=== PATIENT | female | born 1985 | race Caucasian/White ===

== ENCOUNTER → 2018-03-16 | Outpatient (REF) | payer OTHER ==
[2018-03-18 14:10] LABS: HPV HYBRID CAPTURE II Negative (Negative)
== END ==
LOC: M LAB REF 14:32
DX: Z01.419 Encounter for gynecological examination (general) (routine) without abnormal findings (principal); Z11.51 Encounter for screening for human papillomavirus (HPV)

== ENCOUNTER → 2018-04-25 | Outpatient (CLI) | payer OTHER ==
[2018-04-25 17:42] LABS: BASO % 0.2 % (0.0-1.0); EOS % 0.5 % (0.0-3.0); HEMATOCRIT 38.4 % (36.0-47.0); HEMOGLOBIN 12.6 g/dl (12.0-15.5); IMMATURE GRANULOCYTE % 0.4 % (0-3.0); LYMPH # 1.7 10^3/uL (1.5-4.5); LYMPH % 20.7 % (24.0-44.0); MEAN CORPUSCULAR HEMOGLOBIN 31.9 pg (27.0-33.0); MEAN CORPUSCULAR HGB CONC 32.8 g/dl (32.0-36.5); MEAN CORPUSCULAR VOLUME 97.2 fl (80.0-96.0); MONO # 0.5 10^3/uL (0.0-0.8); NEUTROPHILS % 72.2 % (36.0-66.0); PLATELET COUNT, AUTOMATED 158 10^3/uL (150-450); RED BLOOD COUNT 3.95 10^6/uL (4.00-5.40); RED CELL DISTRIBUTION WIDTH 13.5 % (11.5-14.5); WHITE BLOOD COUNT 8.3 10^3/uL (4.0-10.0)
[2018-04-25 19:11] LABS: CHLAMYDIA DNA AMPLIFICATION NEGATIVE (NEGATIVE); GC DNA AMPLIFICATION NEGATIVE (NEGATIVE)
[2018-04-26 11:28] LABS: RUBELLA IgG QUALITATIVE IMMUNE (IMMUNE)
[2018-04-26 11:41] LABS: HBsAg Prenatal NEGATIVE (NEGATIVE)
[2018-04-26 11:57] LABS: HIV 1&2 SCREEN CENTAUR NEGATIVE (NEGATIVE)
[2018-04-26 11:57] LABS: HEPATITIS C VIRUS ABY INDEX 0.1 INDEX (<0.8)
== END ==
LOC: M SMT 15:23
DX: Z36.89 Encounter for other specified antenatal screening (principal); Z3A.08 8 weeks gestation of pregnancy
CPT/HCPCS: 86762

== ENCOUNTER → 2018-07-03 | Outpatient (CLI) | payer OTHER | LOC: M SMT 07:49 | DX: Z36.9 Encounter for antenatal screening, unspecified (principal); Z3A.17 17 weeks gestation of pregnancy | CPT/HCPCS: 76811 ==

== ENCOUNTER → 2018-07-31 | Outpatient (CLI) | payer OTHER | LOC: M SMT 14:53 | DX: Z36.82 Encounter for antenatal screening for nuchal translucency (principal) ==

== ENCOUNTER → 2018-09-06 | Outpatient (CLI) | payer OTHER ==
[2018-09-06 13:21] LABS: GLUCOSE CHALLENGE TEST 1 HOUR 123 MG/DL (LESS THAN 140)
[2018-09-06 13:27] LABS: HEMATOCRIT 34.6 % (36.0-47.0); HEMOGLOBIN 11.5 g/dl (12.0-15.5); MEAN CORPUSCULAR HEMOGLOBIN 33.4 pg (27.0-33.0); MEAN CORPUSCULAR HGB CONC 33.2 g/dl (32.0-36.5); MEAN CORPUSCULAR VOLUME 100.6 fl (80.0-96.0); PLATELET COUNT, AUTOMATED 129 10^3/uL (150-450); RED BLOOD COUNT 3.44 10^6/uL (4.00-5.40); RED CELL DISTRIBUTION WIDTH 13.3 % (11.5-14.5); WHITE BLOOD COUNT 8.6 10^3/uL (4.0-10.0)
== END ==
LOC: M SMT 09:34
DX: Z34.82 Encounter for supervision of other normal pregnancy, second trimester (principal); Z36.89 Encounter for other specified antenatal screening
CPT/HCPCS: 82950

== ENCOUNTER → 2018-11-03 | Outpatient (REF) | payer OTHER ==
[~2018-11-03] MED LIST: ACET50TA PO; CYCL5TA PO; IBUP80TA PO; MAPA500T2 PO; PRENTAB74 PO
== END ==
LOC: M LAB REF 17:06
PROVIDERS: ATTEND Advanced Practice Midwife
DX: Z34.83 Encounter for supervision of other normal pregnancy, third trimester (principal); Z36.85 Encounter for antenatal screening for Streptococcus B

== ENCOUNTER 2018-11-28 19:58 | Inpatient (IN) | payer OTHER ==
[~2018-11-28] VITALS: Ht 160 cm; Wt 95.2 kg
[2018-11-28 20:15] VITALS: BP 113/65
[2018-11-28] MEDS ORDERED: RANI15TA PO (20:20)
[2018-11-28] MEDS ORDERED: OCUF0.25 OS (20:20)
[2018-11-28] MEDS ORDERED: PENICILLIN G POTASSIUM IV 5 MU in D5W MINI-BAG PLUS 100 ML IV STA (20:43)
[2018-11-28 21:09] LABS: HEMOGLOBIN 12.5 g/dl (12.0-15.5); MEAN CORPUSCULAR HEMOGLOBIN 33.6 pg (27.0-33.0); MEAN CORPUSCULAR HGB CONC 33.8 g/dl (32.0-36.5); MEAN CORPUSCULAR VOLUME 99.5 fl (80.0-96.0); RED BLOOD COUNT 3.72 10^6/uL (4.00-5.40); WHITE BLOOD COUNT 9.2 10^3/uL (4.0-10.0)
[2018-11-28 21:24] LABS: PLATELET COUNT, AUTOMATED 93 10^3/uL (150-450)
[2018-11-28 23:15] VITALS: BP 110/54
[2018-11-29] VITALS (12 sets, daily range): BP systolic 99–121; BP diastolic 50–73
[2018-11-29] MEDS ORDERED: OXYTOCIN 30 UNITS IN 0.9% NaCl 500ML IV BAG (J2590) As Ordered ONE (00:41)
[2018-11-29] MEDS ORDERED: ONDANSETRON 4MG/2ML VIAL (J2405) As Ordered ONE (00:56)
[2018-11-29] MEDS ORDERED: ONDANSETRON 4MG/2ML VIAL (J2405) IV ONE (01:00)
[2018-11-29] MEDS ORDERED: PENICILLIN G POTASSIUM IV 2.5 MU in APPROPRIATE DILUENT 1 EA IV SCH (01:00)
[2018-11-29] MEDS ORDERED: MEASLES,MUMPS,RUBELLA VACCINE INJ (MMR-II) (90707) SC SCH (02:00)
[2018-11-29] MEDS ORDERED: DIBUCAINE 1% OINTMENT 30GM TOP PRN (02:00)
[2018-11-29] MEDS ORDERED: METHYLERGONOVINE MALEATE 0.2 MG TAB PO PRN (02:00)
[2018-11-29] MEDS ORDERED: DOCUSATE SODIUM 100 MG CAP PO PRN (02:00)
[2018-11-29] MEDS ORDERED: ONDANSETRON 4MG/2ML VIAL (J2405) IV PRN (02:00)
[2018-11-29] MEDS ORDERED: ACETAMINOPHEN 500 MG TAB PO PRN (02:00)
[2018-11-29] MEDS ORDERED: RHOGAM 300 MCG (1500 IU) INJ (J2790) IM SCH (02:00)
[2018-11-29] MEDS: IBUPROFEN 800 MG TAB PO PRN ×2 (06:21→19:20)
--- NOTE | 2018-11-29 06:41 | HPE ---
DATE OF ADMISSION: 11/28/2018 Dione is a 33-year-old 3, para 2-0-0-2 at 39-3/7 weeks gestation with an estimated date of confinement (EDC) of 12/02/2018 based on first trimester ultrasound. She presents to labor and delivery today with a report of onset of uncomfortable contractions at approximately 1600 hours, reported them to be about every 5-7 minutes apart. They have spaced out a bit since she left home. She does report some bloody show. Denies leakage of fluid. The fetus has been active. Her care was initiated at [facility] in the first trimester. Her course was complicated by advanced maternal age and a reported history of a hemorrhage with a plan to actively manage the third stage of labor. OBSTETRICAL HISTORY: September 2013 39-3/7 weeks, 7 pound 7 ounce female, spontaneous vaginal delivery. June 2015 39-4/7 weeks, 8 pound 5 ounce female, spontaneous vaginal delivery. OBSTETRIC LABS: A positive. Antibody screen negative. Rubella immune. VDRL nonreactive. Urine culture no growth. Hep B surface antigen negative. HIV negative. Hep C antibody nonreactive. Gonorrhea and chlamydia negative. She did decline genetic serum screening labs. Gestational diabetic screening normal at 123. Her Group B Streptococcus (GBS) is positive. PAST MEDICAL HISTORY: History of abnormal Pap smear. Childhood varicella. Allergies to environmental things such as grass. SURGERIES: Hymenectomy. FAMILY HISTORY: Diabetes, heart disease and thyroid. SOCIAL HISTORY: The patient is . She is a nonsmoker. Denies alcohol and drug use. No history of any abuse physical, sexual or emotional. She has a history of chlamydia 20 years ago. ALLERGIES: No known drug allergies. Seasonal allergies. CURRENT MEDICATIONS: - Zantac - vitamin OBJECTIVE: Temperature 98.5, pulse 71, respirations 18, BP is 113/65. heart rate 135 with moderate variability, positive accelerations, no the decelerations. Contractions are every 5-7 minutes. Her abdomen is gravid, cephalic presentation. Estimated weight 8 pounds. Sterile vaginal exam 4 cm dilated, 90% effaced, -2 station, bulging bag of water, mid position, normal show. ASSESSMENT: Intrauterine at 39-3/7. heart rate category 1. Early labor. PLAN: Admit patient to labor and delivery. Routine labs. Out of bed ad jailene. Clear liquid diet. Start IV antibiotics for GBS prophylaxis. When she is treated appropriately will consider assisted rupture of membranes to augment her labor. Uncertain if she wants an epidural at this time to cope with her labor. I do anticipate continued labor progress and a spontaneous vaginal delivery.
--- NOTE | 2018-11-29 08:36 | DN ---
DATE OF DELIVERY: 11/29/2018 DELIVERY NOTE: Dione is a 33-year-old, 3, para 3-0-0-3 now, who was admitted to labor and delivery in active labor. She did reach full dilation at 0115 hours. She pushed to a normal spontaneous vaginal delivery of a live female infant in right occiput anterior (JAYLA) position with restitution to occiput transverse (ROT) position at 0135 hours. There was a nuchal cord times one loose that was reduced manually at the time of delivery. The shoulders delivered with gentle downward guidance and the corpus immediately followed. The female was placed on the maternal abdomen crying and active. Her mouth and nares were bulb suctioned. The cord was clamped times two once pulsation ceased and cut by the father of the baby under my direction. Cord blood was obtained. Spontaneous expulsion of an intact placenta with three-vessel cord by Schultze mechanism was at 0140 hours. Uterine hemostasis achieved with intravenous (IV) Pitocin rapid infusion and uterine fundal massage. Estimated blood loss 250 mL. Perineum and vagina inspected and noted to be intact. female weighed 3580 grams (7 pounds 14 ounces), 9 and 9. The mom is going to breastfeed her daughter and the family have named her Iris. At the close of delivery, lap counts and instrument counts were correct and verified.
[2018-11-29] MEDS: PRENATAL VITAMINS CHEWABLE TABLET PO SCH (09:34)
[2018-11-30] MEDS: IBUPROFEN 800 MG TAB PO PRN (03:43)
[2018-11-30 05:45] VITALS: BP 101/53
[2018-11-30] MEDS ORDERED: IBUP-1114 PO (08:08)
[2018-11-30 09:00] VITALS: BP 118/55
[2018-11-30] MEDS: PRENATAL VITAMINS CHEWABLE TABLET PO SCH (09:07)
== END 2018-11-30 10:50 | disposition home or self-care (01) | DRG 560 ==
LOC: M LDO 19:58 → M LDI 20:50 → M OBS 11-29 04:03
PROVIDERS: ADMIT Advanced Practice Midwife; ATTEND Advanced Practice Midwife
PROC: 10E0XZZ Delivery of Products of Conception, External Approach (ICD-10-PCS; principal; 2018-11-29)
DX: O99.824 Streptococcus B carrier state complicating childbirth (principal); O69.81X0 Labor and delivery complicated by cord around neck, without compression, not applicable or unspecified; Z3A.39 39 weeks gestation of pregnancy; Z37.0 Single live birth

== ENCOUNTER → 2019-04-24 | Outpatient (REF) | payer OTHER ==
[~2019-04-24] MED LIST changes: -ACET50TA PO; -CYCL5TA PO; +CYCL5TAB5 PO; +IBUP-1114 PO; +MAPA500T17 PO; +OCUF0.25 OS; +RANI15TA PO
[2019-04-27 00:07] LABS: HPV HYBRID CAPTURE II Negative (Negative)
== END ==
LOC: M LAB REF 13:14
PROVIDERS: ATTEND Advanced Practice Midwife
DX: Z12.4 Encounter for screening for malignant neoplasm of cervix (principal)
CPT/HCPCS: 87624; G0123

== ENCOUNTER → 2019-04-24 | Outpatient (CLI) | payer OTHER ==
[2019-04-24 14:50] LABS: THYROID STIMULATING HORMONE 79.1 uIU/ML (0.358-3.740)
[2019-04-25 11:10] LABS: FREE T4 0.37 NG/DL (0.76-1.46)
== END ==
LOC: M SMT 09:15
PROVIDERS: ATTEND Advanced Practice Midwife
DX: R63.5 Abnormal weight gain (principal)

== ENCOUNTER → 2019-05-22 | Outpatient (CLI) | payer OTHER ==
[2019-05-22 18:30] LABS: THYROID PEROXIDASE ANTIBODY > 1300.0 U/ML (<60.0)
== END ==
LOC: M SMT 13:02
PROVIDERS: ATTEND Internal Medicine Endocrinology, Diabetes & Metabolism
DX: O90.5 Postpartum thyroiditis (principal); Z3A.00 Weeks of gestation of pregnancy not specified

== ENCOUNTER → 2019-07-27 | Outpatient (REF) | payer OTHER ==
[2019-07-27 13:32] LABS: FREE T4 1.86 NG/DL (0.76-1.46); THYROID STIMULATING HORMONE 0.018 uIU/ML (0.358-3.740)
== END ==
LOC: M LABDRWAD 12:34
PROVIDERS: ATTEND Nurse Practitioner Family
DX: O90.5 Postpartum thyroiditis (principal)

== ENCOUNTER → 2019-08-10 | Outpatient (CLI) | payer OTHER ==
[2019-08-10 12:47] LABS: HEMATOCRIT 40.5 % (36.0-47.0); HEMOGLOBIN 13.7 g/dl (12.0-15.5); MEAN CORPUSCULAR HEMOGLOBIN 32.9 pg (27.0-33.0); MEAN CORPUSCULAR HGB CONC 33.8 g/dl (32.0-36.5); MEAN CORPUSCULAR VOLUME 97.4 fl (80.0-96.0); PLATELET COUNT, AUTOMATED 151 10^3/uL (150-450); RED BLOOD COUNT 4.16 10^6/uL (4.00-5.40); WHITE BLOOD COUNT 4.3 10^3/uL (4.0-10.0)
[2019-08-10 13:15] LABS: ALBUMIN 4.1 GM/DL (3.2-5.2); ALT/SGPT 19 U/L (12-78); BILIRUBIN,TOTAL 0.5 MG/DL (0.2-1.0); BLOOD UREA NITROGEN 10 MG/DL (7-18); CALCIUM LEVEL 9.4 MG/DL (8.5-10.1); CARBON DIOXIDE LEVEL 27 MEQ/L (21-32); CHLORIDE LEVEL 107 MEQ/L (98-107); CHOLESTEROL LEVEL 148 MG/DL (<200); CREATININE FOR GFR 0.74 MG/DL (0.55-1.30); FREE T3 4.6 PG/ML (2.2-4.0); FREE T4 1.95 NG/DL (0.76-1.46); GLOMERULAR FILTRATION RATE > 60.0 (>60); GLUCOSE, FASTING 87 MG/DL (70-100); HDL CHOLESTEROL 50 MG/DL (>40); LDL CHOLESTEROL 81 MG/DL (<100); NON-HDL-C 98 MG/DL; POTASSIUM SERUM 4.1 MEQ/L (3.5-5.1); SODIUM LEVEL 140 MEQ/L (136-145); T UPTAKE 36 % (30-39); THYROID PEROXIDASE ANTIBODY 622.9 U/ML (<60.0); THYROID STIMULATING HORMONE 0.008 uIU/ML (0.358-3.740); THYROXINE (T4) 15.6 UG/DL (4.5-12.0); TOTAL 25(OH) VITAMIN D 32.8 NG/ML (30.0-100.0); TOTAL PROTEIN 7.3 GM/DL (6.4-8.2); TRIGLYCERIDES LEVEL 83 MG/DL (<150)
[2019-08-10 13:17] LABS: HEMOGLOBIN A1c 5.1 %
[2019-08-20 00:09] LABS: Lyme Disease IgG/IgM Antibodie <0.91 ISR (0.00-0.90); Lyme Disease IgM Ab Quantitati <0.80 index (0.00-0.79); THRYOGLOBULIN ANTIBODIES (ATA) 3.1 IU/mL (0.0-0.9); THYROGLOBULIN RIA 7.4 ng/mL (.); TSH RECEPTOR ASSAY <1.10 IU/L (0.00-1.75)
== END ==
LOC: M ADAMS 10:21
PROVIDERS: ATTEND Physician Assistant Medical
DX: E06.9 Thyroiditis, unspecified (principal)

== ENCOUNTER → 2019-09-25 | Outpatient (REF) | payer OTHER ==
[2019-09-25 13:42] LABS: FREE T4 1.5 NG/DL (0.76-1.46); THYROID STIMULATING HORMONE 0.02 uIU/ML (0.358-3.740)
== END ==
LOC: M LABDRWAD 13:01
PROVIDERS: ATTEND Nurse Practitioner Family
DX: O90.5 Postpartum thyroiditis (principal)

== ENCOUNTER → 2019-11-30 | Outpatient (REF) | payer OTHER ==
[2019-11-30 13:24] LABS: FREE T4 1.29 NG/DL (0.76-1.46); THYROID STIMULATING HORMONE 0.334 uIU/ML (0.358-3.740)
== END ==
LOC: M LABDRWAD 12:34
PROVIDERS: ATTEND Nurse Practitioner Family
DX: O90.5 Postpartum thyroiditis (principal)

== ENCOUNTER → 2020-04-04 | Outpatient (REF) | payer OTHER ==
[2020-04-04 13:25] LABS: FREE T4 1.14 NG/DL (0.76-1.46); THYROID STIMULATING HORMONE 0.225 uIU/ML (0.358-3.740)
== END ==
LOC: M LABDRWAD 12:51
PROVIDERS: ATTEND Nurse Practitioner Family
DX: O90.5 Postpartum thyroiditis (principal)

== ENCOUNTER → 2020-07-29 | Outpatient (REF) | payer OTHER ==
[2020-07-29 17:18] LABS: FREE T4 1.35 NG/DL (0.76-1.46); THYROID STIMULATING HORMONE 0.174 uIU/ML (0.358-3.740)
== END ==
LOC: M LABDRWAD 16:08
PROVIDERS: ATTEND Nurse Practitioner Family
DX: O90.5 Postpartum thyroiditis (principal)

== ENCOUNTER → 2020-08-05 | Outpatient (REF) | payer OTHER | LOC: M SFHCWAGY 09:52 | PROVIDERS: ATTEND Advanced Practice Midwife | DX: Z01.419 Encounter for gynecological examination (general) (routine) without abnormal findings (principal); Z12.4 Encounter for screening for malignant neoplasm of cervix ==

== ENCOUNTER → 2020-08-08 | Outpatient (REF) | payer OTHER ==
[2020-08-08 19:23] LABS: PROLACTIN 6.4 NG/ML
[2020-08-17 14:14] LABS: 17 HYDROXY PROGESTERONE 42 ng/dL (.); DHEA-SULFATE, PEDIATRIC 175 ug/dL (.); INSULIN LEVEL 13.7 uIU/mL (2.6-24.9)
== END ==
LOC: M PLALAB 14:48 → M SFHCADAM 14:48
PROVIDERS: ATTEND Advanced Practice Midwife
DX: Z01.89 Encounter for other specified special examinations (principal)

== ENCOUNTER → 2020-10-21 | Outpatient (REF) | payer OTHER ==
[2020-10-21 13:57] LABS: FREE T4 1.17 NG/DL (0.76-1.46); THYROID STIMULATING HORMONE 0.084 uIU/ML (0.358-3.740)
== END ==
LOC: M LABDRWAD 12:20
PROVIDERS: ATTEND Nurse Practitioner Family
DX: O90.5 Postpartum thyroiditis (principal)

== ENCOUNTER → 2021-01-30 | Outpatient (REF) | payer OTHER ==
[2021-01-30 17:33] LABS: FREE T4 1.2 NG/DL (0.76-1.46); THYROID STIMULATING HORMONE 0.006 uIU/ML (0.358-3.740)
== END ==
LOC: M LABDRWAD 16:33
PROVIDERS: ATTEND Nurse Practitioner Family
DX: O90.5 Postpartum thyroiditis (principal)

== ENCOUNTER → 2021-08-11 | Outpatient (REF) | payer OTHER | LOC: M SFHCWAGY 10:09 | PROVIDERS: ATTEND Advanced Practice Midwife | DX: Z12.4 Encounter for screening for malignant neoplasm of cervix (principal) | CPT/HCPCS: 87624; G0123 ==

== ENCOUNTER → 2021-09-16 | Outpatient (REF) | payer OTHER ==
[2021-09-16 18:07] LABS: FREE T4 1.1 NG/DL (0.76-1.46); THYROID STIMULATING HORMONE 0.05 uIU/ML (0.358-3.740)
== END ==
LOC: M PLALAB 14:44 → M SFHCADAM 14:47
PROVIDERS: ATTEND Advanced Practice Midwife
DX: E03.9 Hypothyroidism, unspecified (principal)

== ENCOUNTER → 2022-09-14 | Outpatient (REF) | payer OTHER, BC | LOC: M SFHCWAGY 10:06 | PROVIDERS: ATTEND Advanced Practice Midwife | DX: Z12.4 Encounter for screening for malignant neoplasm of cervix (principal) | CPT/HCPCS: 87624; G0123 ==

== ENCOUNTER → 2023-03-28 | Outpatient (CLI) | payer BC | LOC: M WHC 14:23 | PROVIDERS: ATTEND Advanced Practice Midwife | DX: N92.0 Excessive and frequent menstruation with regular cycle (principal) ==

== ENCOUNTER → 2023-03-28 | Outpatient (CLI) | payer BC | LOC: M RAD 13:49 | PROVIDERS: ATTEND Physician Assistant Medical | DX: E03.9 Hypothyroidism, unspecified (principal) ==

== ENCOUNTER 2023-09-02 06:16 | Day surgery (SDC) | payer BC ==
[~2023-09-02] VITALS: Ht 160 cm; Wt 101.3 kg
[~2023-09-02 06:16] MED LIST changes: +LEVO88TA3 PO; +ceFAZolin SOD 2 GM in IV 1 EA IV ONE
[2023-09-02 06:55] LABS: HEMATOCRIT 41.7 % (36.0-47.0); HEMOGLOBIN 14.1 g/dl (12.0-15.5); MEAN CORPUSCULAR HEMOGLOBIN 32.6 pg (27.0-33.0); MEAN CORPUSCULAR HGB CONC 33.8 g/dl (32.0-36.5); MEAN CORPUSCULAR VOLUME 96.3 fl (80.0-96.0); PLATELET COUNT, AUTOMATED 189 10^3/uL (150-450); RED BLOOD COUNT 4.33 10^6/uL (4.00-5.40); WHITE BLOOD COUNT 6.2 10^3/uL (4.0-10.0)
[2023-09-02] MEDS ORDERED: LR 1,000 ML IV SCH ×2 (07:15→09:35)
[2023-09-02] MEDS ORDERED: SCOPOLAMINE 1MG TRANSDERMAL PATCH TOP ONE (07:30)
[2023-09-02] MEDS ORDERED: ceFAZolin 2 GM/D5W 50 ML IV BAG As Ordered ONE (07:58)
[2023-09-02] MEDS ORDERED: MIDAZOLAM INJ 2MG/2ML VIAL As Ordered ONE (07:59)
[2023-09-02] MEDS ORDERED: LIDOCAINE 2% 100MG/5ML SDV (FOR ANES.) As Ordered ONE (07:59)
[2023-09-02] MEDS ORDERED: HYDROmorphone HCL 2MG/ML 1ML VIAL As Ordered ONE (07:59)
[2023-09-02] MEDS ORDERED: ACETAMINOPHEN 1000MG 100ML IV BAG As Ordered ONE (07:59)
[2023-09-02] MEDS ORDERED: ONDANSETRON 4MG 2ML VIAL As Ordered ONE (07:59)
[2023-09-02] MEDS ORDERED: fentaNYL 250 MCG/5 ML INJECTION As Ordered ONE (07:59)
[2023-09-02] MEDS ORDERED: ROCURONIUM BROMIDE 50MG/5ML VIAL As Ordered ONE (07:59)
[2023-09-02] MEDS ORDERED: KETOROLAC 60MG 2ML VIAL As Ordered ONE (07:59)
[2023-09-02] MEDS ORDERED: METOCLOPRAMIDE INJ 10MG/2ML VIAL As Ordered ONE (07:59)
[2023-09-02] MEDS ORDERED: DESFLURANE 240 ML INHALANT As Ordered ONE (07:59)
[2023-09-02] MEDS ORDERED: propofoL 200 MG/20 ML VIAL As Ordered ONE (07:59)
[2023-09-02] MEDS ORDERED: SUGAMMADEX SODIUM 500 MG/5 ML VIAL (BRIDION) As Ordered ONE (07:59)
[2023-09-02] MEDS ORDERED: dexmedeTOMIDine (4MCG/ML)200MCG/50ML BTL (PRECEDEX) As Ordered ONE (08:23)
[2023-09-02] MEDS ORDERED: METHYLENE BLUE 0.5% (5MG/ML) 10 ML AMP (PROVAYBLUE) As Ordered ONE (08:26)
[2023-09-02] MEDS ORDERED: HYDROMORPHONE HCL 0.5 MG/ 0.5 ML SYRINGE IV PRN (09:35)
[2023-09-02] MEDS ORDERED: fentaNYL 100 MCG/2 ML INJECTION IV PRN (09:35)
[2023-09-02] MEDS ORDERED: ONDANSETRON 4MG 2ML VIAL IV PRN (09:35)
[2023-09-02] MEDS ORDERED: METOCLOPRAMIDE INJ 10MG/2ML VIAL IV PRN (09:35)
[2023-09-02] MEDS ORDERED: oxyCODONE 5MG TAB PO PRN (09:35)
[2023-09-02] MEDS ORDERED: PERCOCET 5MG/325MG TAB PO PRN (10:30)
[2023-09-02 11:55] VITALS: BP 93/51; TEMP 96.6; O2SAT 100
[2023-09-02] MEDS ORDERED: KETOROLAC 30 MG/ML 1ML VIAL IV PRN (15:00)
== END 2023-09-02 12:18 | disposition home or self-care (01) ==
LOC: M SDC 06:16
PROVIDERS: ATTEND Obstetrics & Gynecology
DX: N93.9 Abnormal uterine and vaginal bleeding, unspecified (principal); E03.9 Hypothyroidism, unspecified; E28.2 Polycystic ovarian syndrome; Z79.899 Other long term (current) drug therapy
CPT/HCPCS: 36415; 58571; 81025; 85027; 86850; 86900; 86901; 88307; J0131; J0665; J0690; J1100; J1170; J1885; J2250; J2405; J2765; J3010; Q9968; S2900

== ENCOUNTER → 2024-02-07 | Outpatient (CLI) | payer BC ==
[~2024-02-07] MED LIST changes: -ceFAZolin SOD 2 GM in IV 1 EA IV ONE
== END ==
LOC: M WHC 08:49
PROVIDERS: ATTEND Advanced Practice Midwife
DX: Z12.31 Encounter for screening mammogram for malignant neoplasm of breast (principal)

== ENCOUNTER 2025-07-02 05:57 | Emergency (ER) | payer BC ==
[~2025-07-02] VITALS: Ht 162.6 cm; Wt 96.8 kg
[2025-07-02] MEDS: KETOROLAC 30 MG/ML 1 ML VIAL IV ONE (08:06)
[2025-07-02] MEDS: NS (Normal Saline) 0.9% 1,000 ML IV ONE (08:06)
[2025-07-02 08:09] LABS: BASO # 0.0 10^3/uL (0.0-0.2); BASO % 0.2 % (0.0-1.0); EOS # 0.3 10^3/uL (0.0-0.5); EOS % 2.1 % (0.0-3.0); LYMPH # 1.4 10^3/uL (1.5-5.0); LYMPH % 11.1 % (24.0-44.0); MONO # 0.4 10^3/uL (0.0-0.8); MONO % 3.4 % (2.0-8.0); NEUTROPHILS # 10.6 10^3/uL (1.5-8.5); NEUTROPHILS % 82.9 % (36.0-66.0); PLATELET COUNT, AUTOMATED 187 10^3/uL (150-450)
[2025-07-02] MEDS ORDERED: ISOVUE-370 76% 100 ML VIAL As Ordered ONE (08:37)
[2025-07-02 08:51] LABS: ALT/SGPT 18 U/L (7.0-40); AST/SGOT 20 U/L (<34); CALCIUM LEVEL 9.2 MG/DL (8.5-10.1); CARBON DIOXIDE LEVEL 26 MMOL/L (20-31); CHLORIDE LEVEL 108 MMOL/L (98-107); CREATININE FOR GFR 0.77 MG/DL (0.55-1.30); GLOMERULAR FILTRATION RATE > 90.0 (>58); POTASSIUM SERUM 4.1 MMOL/L (3.5-5.1); SODIUM LEVEL 142 MMOL/L (136-145)
[2025-07-02 09:34] LABS: KETONE, URINE AUTO RFX NEGATIVE (NEGATIVE); LEUKOCYTE ESTERASE UR AUTO RFX NEGATIVE (NEGATIVE); NITRITE, URINE AUTO RFX NEGATIVE (NEGATIVE); RBC, URINE AUTO RFX 0 /HPF (0-3); SQUAM EPITHELIAL CELL UR AURFX 0 /HPF (0-6); WBC, URINE AUTO RFX 0 /HPF (0-3)
[2025-07-02] MEDS ORDERED: ONDA-282 PO (10:48)
[2025-07-02 10:55] VITALS: BP 111/55; TEMP 98.3; O2SAT 98
== END 2025-07-02 11:01 | disposition home or self-care (01) ==
LOC: M ED 05:57
DX: K52.9 Noninfective gastroenteritis and colitis, unspecified (principal); N83.292 Other ovarian cyst, left side; K76.0 Fatty (change of) liver, not elsewhere classified; Z79.83 Long term (current) use of bisphosphonates; Z79.899 Other long term (current) drug therapy
CPT/HCPCS: 74177; 80047; 80048; 80076; 81001; 83690; 85025; 93005; 96374; 99284; J1885; Q9967

== ENCOUNTER → 2025-07-30 | Outpatient (CLI) | payer BC ==
[~2025-07-30] MED LIST changes: +ONDA-282 PO
== END ==
LOC: M WHC 13:49
PROVIDERS: ATTEND Advanced Practice Midwife
DX: Z12.31 Encounter for screening mammogram for malignant neoplasm of breast (principal); R92.313 Mammographic fatty tissue density, bilateral breasts

== ENCOUNTER → 2025-09-03 | Outpatient (CLI) | payer BC | LOC: M WHC 08:23 | PROVIDERS: ATTEND Advanced Practice Midwife | DX: N83.292 Other ovarian cyst, left side (principal) ==